=== PATIENT | male | born 1940 | race Two or more races ===

== ENCOUNTER 2018-02-27 11:28 | Inpatient (IN) | payer MEDICARE, MEDICAID ==
[~2018-02-27] VITALS: Ht 172.7 cm; Wt 80.0 kg
[~2018-02-27 11:28] MED LIST: DOCU-131 PO; FLUT1DIS3 IH; GABA300C PO; LACT1CAP4 PO; MULT1CAP19 PO; MVI,10VI2; ONDA4TAB7 PO; OXYC5CAP2 PO; POLY17PO5 PO; TOLT4CAP PO
--- NOTE | 2018-02-27 11:55 | NUR ---
no drainage from suprapubic cath that is open to air having been cut by staff at facility. bladder scanner reveals 67 mm. notified. Labs drawn and pt to XR.
[2018-02-27 12:00] LABS: MEAN CORPUSCULAR HEMOGLOBIN 29.5 pg (27.5-34.5); MEAN CORPUSCULAR VOLUME 89.4 fL (81-97); PLATELET COUNT 305 x10^3/uL (130-400); RED BLOOD COUNT 4.88 x10^6/uL (4.38-5.82); RED CELL DISTRIBUTION WIDTH 14.4 % (9.4-14.8)
[2018-02-27 12:11] LABS: INTERNATIONAL NORMALIZED RATIO 1.25 (0.93-1.1); PROTHROMBIN TIME 13.1 Seconds (9.6-11.5)
[2018-02-27 12:14] LABS: ALBUMIN 2.7 g/dL (3.4-5.0); ANION GAP 9 mmol/L (5-15); CALCIUM 8.9 mg/dL (8.5-10.1); CHLORIDE 104 mmol/L (98-107)
[2018-02-27 12:17] LABS: ALANINE AMINOTRANSFERASE 18 U/L (12-78); ALKALINE PHOSPHATASE 91 U/L (45-117); BILIRUBIN,TOTAL 0.5 mg/dL (0.2-1.0); CREATININE 2.63 mg/dL (0.7-1.3); TOTAL PROTEIN 7.9 g/dL (6.4-8.2)
[2018-02-27] MEDS ORDERED: CEFT1VIA13 IM (12:33)
[2018-02-27] MEDS ORDERED: AMIN30LI PO (12:33)
[2018-02-27] MEDS ORDERED: METF850T10 PO (12:33)
[2018-02-27] MEDS ORDERED: INSU100I13 SQ (12:33)
[2018-02-27] MEDS ORDERED: MAGN400T26 PO (12:33)
[2018-02-27] MEDS ORDERED: MIGHTY SHAKE PO (12:33)
[2018-02-27] MEDS ORDERED: INSU100C5 SQ-INSULIN (12:33)
[2018-02-27] MEDS ORDERED: HYDR-3240 PO (12:33)
--- NOTE | 2018-02-27 12:34 | NUR ---
DR FERRARA TO BS TO D/C SUPRAPUBIC CATH AND REPLACE. UNABLE TO D/C CATH R/T RESISTENCE. PT REPOSITIONED TO BE OFF R HIP. HEALING PRESSURE ULCER. WHITE BARRIER OINTMENT PRESENT. COCCYX/SACRUM EXAMINED. BLANCHABLE REDNESS PRESENT. WHITE BARRIER OINTMENT PRESENT. SKIN IN DRY. NO URINE/FECES PRESENT. POSITIONED WITH PILLOWS TO PROTECT AGAINST SKIN BREAKDOWN.
[2018-02-27 12:56] LABS: BAND#(MANUAL) 2.05 x10^3/uL; BANDS%(MANUAL) 12 % (0-7); LYMPHS% (MANUAL) 7 % (22-44); MD YES; MONOS% (MANUAL) 7 % (2-9); SEG#(MANUAL) 12.65 x10^3/uL (1.8-6.8); SEGS% (MANUAL) 74 % (42-75)
[2018-02-27 12:57] LABS: <PLATELET ESTIMATE> ADEQUATE; <PLT MORPHOLOGY> NORMAL PLT MORPH; <RBC MORPHOLOGY> NORMAL; PMNS WITH VACUOLES 1+
--- NOTE | 2018-02-27 13:18 | NUR ---
PT TO CT
--- NOTE | 2018-02-27 13:46 | NUR ---
DR PALM TO BS. CATH D/C'D. NEW 16F CATH PLACED BY DR PALM. PLACEMENT CONFIRMED WITH IRRIGATION. IRRIGATION FLUID SENT TO LAB FOR CULTURE.
[2018-02-27] MEDS ORDERED: CEFTRIAXONE PMX 1GM/50ML 50 ML IVPB ONE (14:00)
[2018-02-27] MEDS ORDERED: CEFTRIAXONE PMX 1GM/50ML 50 ML ONE (14:18)
[2018-02-27] MEDS ORDERED: ONDANSETRON 2MG/ML, 2ML IVPush PRN (15:00)
[2018-02-27] MEDS: CEFTRIAXONE PMX 2GM/50ML 50 ML IV SCH (15:16)
--- NOTE | 2018-02-27 15:18 | NUR ---
VSS. NAD. No needs at this time.
--- NOTE | 2018-02-27 15:27 | NUR ---
Report to ZACHARY Jeffries.
[2018-02-27] MEDS: INSULIN LISPRO 100 UNITS/ML, PEN SQ-INSULIN SCH ×2 (16:00→22:42)
[2018-02-27 16:58] VITALS: BP 102/65
[2018-02-27 20:10] VITALS: BP 104/65
[2018-02-27] MEDS: INSULIN GLARGINE 100 UNITS/ML, PEN SQ-INSULIN SCH (21:00)
[2018-02-27] MEDS: SODIUM CHLORIDE 0.9% 1,000 ML IV SCH (22:20)
[2018-02-27] MEDS: HEPARIN 5,000 UNITS/ML, 1ML SQ SCH (22:20)
[2018-02-28 03:32] VITALS: BP 103/61
[2018-02-28] MEDS: HEPARIN 5,000 UNITS/ML, 1ML SQ SCH ×3 (05:30→20:38)
[2018-02-28] MEDS: SODIUM CHLORIDE 0.9% 1,000 ML IV SCH ×2 (05:31→13:30)
[2018-02-28 05:42] LABS: MEAN CORPUSCULAR HEMOGLOBIN 29.8 pg (27.5-34.5); MEAN CORPUSCULAR HGB CONC 33.6 g/dL (33.2-36.2); MEAN CORPUSCULAR VOLUME 88.7 fL (81-97); MEAN PLATELET VOLUME 7.1 fL (7.4-10.4); PLATELET COUNT 288 x10^3/uL (130-400); RED BLOOD COUNT 4.14 x10^6/uL (4.38-5.82); RED CELL DISTRIBUTION WIDTH 14.8 % (9.4-14.8)
[2018-02-28 05:50] LABS: ALANINE AMINOTRANSFERASE 16 U/L (12-78); ALBUMIN 2.3 g/dL (3.4-5.0); ANION GAP 11 mmol/L (5-15); CALCIUM 8.3 mg/dL (8.5-10.1); CHLORIDE 109 mmol/L (98-107); CREATININE 2.46 mg/dL (0.7-1.3)
[2018-02-28 05:52] LABS: ALKALINE PHOSPHATASE 79 U/L (45-117); BILIRUBIN,TOTAL 0.3 mg/dL (0.2-1.0); TOTAL PROTEIN 7.2 g/dL (6.4-8.2)
[2018-02-28 06:07] LABS: BASOPHILS # (AUTO) 0.04 x10^3/uL (0-0.1); BASOPHILS % (AUTO) 0 % (0-1); EOSINOPHILS # (AUTO) 0.02 x10^3/uL (0-0.4); EOSINOPHILS % (AUTO) 0 % (1-7); LYMPHOCYTES # (AUTO) 1.16 x10^3/uL (1-3.4); LYMPHOCYTES % (AUTO) 9 % (22-44); MD SCAN; MONOCYTES # (AUTO) 0.75 x10^3/uL (0.2-0.8); MONOCYTES % (AUTO) 6 % (2-9); NEUTROPHILS # (AUTO) 11.52 x10^3/uL (1.8-6.8); NEUTROPHILS % (AUTO) 85 % (42-75)
[2018-02-28 06:30] VITALS: BP 96/57
[2018-02-28] MEDS: INSULIN LISPRO 100 UNITS/ML, PEN SQ-INSULIN SCH ×4 (07:00→20:47)
--- NOTE | 2018-02-28 10:56 | NUR ---
REC: CHOPPED DIET WITH THIN LIQUIDS DUE TO REDUCED DENTITION Addendum: 02/28/18 at 1129 by Jovana DÍAZ Amended: Links added.
[2018-02-28] MEDS: ALBUTEROL SULFATE 2.5 MG/3 ML HHN SCH ×2 (13:30→19:30)
[2018-02-28 14:57] VITALS: BP 109/63
[2018-02-28] MEDS: CEFTRIAXONE PMX 2GM/50ML 50 ML IV SCH (17:04)
[2018-02-28 18:50] VITALS: BP 107/49
[2018-02-28] MEDS: DOCUSATE 100 MG CAPSULE PO SCH (20:38)
[2018-02-28] MEDS: INSULIN GLARGINE 100 UNITS/ML, PEN SQ-INSULIN SCH (20:53)
[2018-02-28] MEDS ORDERED: FLUTICASONE IH SCH (21:00)
[2018-02-28] MEDS: BUDESONIDE 0.5 MG/2 ML INHA HHN SCH (21:00)
[2018-02-28] MEDS ORDERED: SALMETEROL IH SCH (21:00)
[2018-03-01] MEDS: ALBUTEROL SULFATE 2.5 MG/3 ML HHN SCH ×4 (01:30→20:41)
[2018-03-01] MEDS: SODIUM CHLORIDE 0.9% 1,000 ML IV SCH ×4 (01:35→22:15)
[2018-03-01 01:39] VITALS: BP 109/58
[2018-03-01] MEDS: HEPARIN 5,000 UNITS/ML, 1ML SQ SCH ×3 (04:49→20:36)
[2018-03-01 06:18] LABS: MEAN CORPUSCULAR HEMOGLOBIN 29.7 pg (27.5-34.5); MEAN CORPUSCULAR HGB CONC 33.1 g/dL (33.2-36.2); MEAN CORPUSCULAR VOLUME 89.7 fL (81-97); PLATELET COUNT 271 x10^3/uL (130-400); RED BLOOD COUNT 3.65 x10^6/uL (4.38-5.82); RED CELL DISTRIBUTION WIDTH 14.9 % (9.4-14.8)
[2018-03-01 06:32] LABS: ALANINE AMINOTRANSFERASE 16 U/L (12-78); ALBUMIN 1.9 g/dL (3.4-5.0); ANION GAP 9 mmol/L (5-15); CALCIUM 7.3 mg/dL (8.5-10.1); CHLORIDE 104 mmol/L (98-107)
[2018-03-01 06:35] LABS: ALKALINE PHOSPHATASE 73 U/L (45-117); BILIRUBIN,TOTAL 0.4 mg/dL (0.2-1.0); CREATININE 1.43 mg/dL (0.7-1.3); TOTAL PROTEIN 6.2 g/dL (6.4-8.2)
[2018-03-01 06:41] LABS: BASOPHILS # (AUTO) 0.02 x10^3/uL (0-0.1); BASOPHILS % (AUTO) 0 % (0-1); EOSINOPHILS # (AUTO) 0.15 x10^3/uL (0-0.4); EOSINOPHILS % (AUTO) 2 % (1-7); LYMPHOCYTES # (AUTO) 1.02 x10^3/uL (1-3.4); LYMPHOCYTES % (AUTO) 13 % (22-44); MD SCAN; MONOCYTES # (AUTO) 0.53 x10^3/uL (0.2-0.8); MONOCYTES % (AUTO) 7 % (2-9); NEUTROPHILS # (AUTO) 6.39 x10^3/uL (1.8-6.8); NEUTROPHILS % (AUTO) 79 % (42-75)
[2018-03-01] MEDS: INSULIN LISPRO 100 UNITS/ML, PEN SQ-INSULIN SCH ×4 (07:00→20:41)
[2018-03-01 07:45] VITALS: BP 127/67
[2018-03-01] MEDS: BUDESONIDE 0.5 MG/2 ML INHA HHN SCH ×2 (09:00→20:41)
[2018-03-01] MEDS: DOCUSATE 100 MG CAPSULE PO SCH ×2 (09:11→20:36)
[2018-03-01] MEDS: GABAPENTIN 300 MG CAPSULE PO SCH (09:11)
[2018-03-01] MEDS: TOLTERODINE LA 4MG CAP.ER.24H PO SCH (09:11)
[2018-03-01] MEDS: LACTOBACILLUS 1GM/ PACKET PO SCH (09:11)
[2018-03-01] MEDS: MULTIVITAMIN 1 TABLET PO SCH (09:11)
[2018-03-01] MEDS: POLYETHYLENE GLYCOL 17 GM PACKET PO SCH (09:12)
[2018-03-01] MEDS ORDERED: POTASSIUM CHLORIDE 20 MEQ TAB.ER.PRT PO ONE (11:30)
[2018-03-01 14:30] VITALS: BP 111/62
[2018-03-01] MEDS: CEFTRIAXONE PMX 2GM/50ML 50 ML IV SCH (17:09)
[2018-03-01 18:44] LABS: CULTURE INDICATED? YES; MICROSCOPIC INDICATED
[2018-03-01 19:59] VITALS: BP 124/63
[2018-03-01] MEDS: INSULIN GLARGINE 100 UNITS/ML, PEN SQ-INSULIN SCH (20:44)
[2018-03-02 00:37] VITALS: BP 128/62
[2018-03-02] MEDS: HEPARIN 5,000 UNITS/ML, 1ML SQ SCH ×3 (04:53→21:35)
[2018-03-02 05:36] LABS: BASOPHILS # (AUTO) 0.03 x10^3/uL (0-0.1); BASOPHILS % (AUTO) 1 % (0-1); EOSINOPHILS % (AUTO) 2 % (1-7); LYMPHOCYTES % (AUTO) 15 % (22-44); MD NO; MEAN CORPUSCULAR HEMOGLOBIN 29.8 pg (27.5-34.5); MEAN CORPUSCULAR HGB CONC 33.6 g/dL (33.2-36.2); MEAN CORPUSCULAR VOLUME 88.7 fL (81-97); MEAN PLATELET VOLUME 7.3 fL (7.4-10.4); MONOCYTES # (AUTO) 0.47 x10^3/uL (0.2-0.8); MONOCYTES % (AUTO) 8 % (2-9); NEUTROPHILS # (AUTO) 4.32 x10^3/uL (1.8-6.8); NEUTROPHILS % (AUTO) 74 % (42-75); PLATELET COUNT 301 x10^3/uL (130-400); RED BLOOD COUNT 3.87 x10^6/uL (4.38-5.82); RED CELL DISTRIBUTION WIDTH 14.6 % (9.4-14.8)
[2018-03-02 05:43] LABS: ANION GAP 8 mmol/L (5-15); CALCIUM 7.8 mg/dL (8.5-10.1); CHLORIDE 103 mmol/L (98-107)
[2018-03-02 05:45] LABS: CREATININE 0.99 mg/dL (0.7-1.3)
[2018-03-02] MEDS: INSULIN LISPRO 100 UNITS/ML, PEN SQ-INSULIN SCH ×4 (07:00→21:17)
[2018-03-02 08:00] VITALS: BP 125/64
[2018-03-02] MEDS: ALBUTEROL SULFATE 2.5 MG/3 ML HHN SCH ×2 (09:00→21:00)
[2018-03-02] MEDS: BUDESONIDE 0.5 MG/2 ML INHA HHN SCH ×2 (09:00→21:00)
[2018-03-02] MEDS: TOLTERODINE LA 4MG CAP.ER.24H PO SCH (10:04)
[2018-03-02] MEDS: DOCUSATE 100 MG CAPSULE PO SCH ×2 (10:04→21:34)
[2018-03-02] MEDS: MULTIVITAMIN 1 TABLET PO SCH (10:04)
[2018-03-02] MEDS: POLYETHYLENE GLYCOL 17 GM PACKET PO SCH (10:04)
[2018-03-02] MEDS: GABAPENTIN 300 MG CAPSULE PO SCH (10:04)
[2018-03-02] MEDS: LACTOBACILLUS 1GM/ PACKET PO SCH (10:04)
[2018-03-02 14:00] VITALS: BP 141/68
[2018-03-02] MEDS: SODIUM CHLORIDE 0.9% 1,000 ML IV SCH (14:59)
[2018-03-02] MEDS: ACETAMINOPHEN 325 MG TABLET PO PRN (17:17)
[2018-03-02] MEDS: CEFTRIAXONE PMX 2GM/50ML 50 ML IV SCH (17:17)
[2018-03-02 19:33] VITALS: BP 144/69
[2018-03-02] MEDS ORDERED: LIDODERM 5% PATCH TD SCH (21:00)
[2018-03-02] MEDS: INSULIN GLARGINE 100 UNITS/ML, PEN SQ-INSULIN SCH (21:30)
[2018-03-02] MEDS: OXYBUTYNIN CHLORIDE 5 MG TABLET PO SCH (21:34)
[2018-03-03 01:06] VITALS: BP 151/67
[2018-03-03] MEDS: SODIUM CHLORIDE 0.9% 1,000 ML IV SCH (04:27)
[2018-03-03] MEDS: HEPARIN 5,000 UNITS/ML, 1ML SQ SCH ×2 (04:29→13:18)
[2018-03-03 05:29] LABS: CHLORIDE 104 mmol/L (98-107)
[2018-03-03 05:31] LABS: MEAN CORPUSCULAR HEMOGLOBIN 29.4 pg (27.5-34.5); MEAN CORPUSCULAR HGB CONC 33.6 g/dL (33.2-36.2); MEAN CORPUSCULAR VOLUME 87.3 fL (81-97); MEAN PLATELET VOLUME 7.2 fL (7.4-10.4); PLATELET COUNT 335 x10^3/uL (130-400); RED CELL DISTRIBUTION WIDTH 14.7 % (9.4-14.8)
[2018-03-03 05:38] LABS: ALANINE AMINOTRANSFERASE 18 U/L (12-78); ALBUMIN 2.2 g/dL (3.4-5.0); ALKALINE PHOSPHATASE 80 U/L (45-117); ANION GAP 7 mmol/L (5-15); BILIRUBIN,TOTAL 0.4 mg/dL (0.2-1.0); CALCIUM 8.3 mg/dL (8.5-10.1); CREATININE 0.96 mg/dL (0.7-1.3); TOTAL PROTEIN 6.8 g/dL (6.4-8.2)
[2018-03-03 05:59] LABS: BASOPHILS # (AUTO) 0.03 x10^3/uL (0-0.1); BASOPHILS % (AUTO) 0 % (0-1); EOSINOPHILS % (AUTO) 1 % (1-7); LYMPHOCYTES # (AUTO) 1.12 x10^3/uL (1-3.4); LYMPHOCYTES % (AUTO) 15 % (22-44); MD SCAN; MONOCYTES # (AUTO) 0.55 x10^3/uL (0.2-0.8); MONOCYTES % (AUTO) 7 % (2-9); NEUTROPHILS # (AUTO) 5.69 x10^3/uL (1.8-6.8); NEUTROPHILS % (AUTO) 76 % (42-75)
[2018-03-03] MEDS: BUDESONIDE 0.5 MG/2 ML INHA HHN SCH (07:15)
[2018-03-03] MEDS: ALBUTEROL SULFATE 2.5 MG/3 ML HHN SCH (07:15)
[2018-03-03 07:49] VITALS: BP 129/69
[2018-03-03] MEDS ORDERED: MAGNESIUM SULFATE PMX 2GM/50ML 50 ML IV ONE (08:30)
[2018-03-03] MEDS: DOCUSATE 100 MG CAPSULE PO SCH (09:53)
[2018-03-03] MEDS: POLYETHYLENE GLYCOL 17 GM PACKET PO SCH (09:53)
[2018-03-03] MEDS: LACTOBACILLUS 1GM/ PACKET PO SCH (09:53)
[2018-03-03] MEDS: INSULIN LISPRO 100 UNITS/ML, PEN SQ-INSULIN SCH ×3 (09:53→17:04)
[2018-03-03] MEDS: MULTIVITAMIN 1 TABLET PO SCH (09:53)
[2018-03-03] MEDS: TOLTERODINE LA 4MG CAP.ER.24H PO SCH (09:53)
[2018-03-03] MEDS: GABAPENTIN 300 MG CAPSULE PO SCH (09:54)
[2018-03-03] MEDS: OXYBUTYNIN CHLORIDE 5 MG TABLET PO SCH (09:54)
[2018-03-03 13:10] VITALS: BP 161/78
[2018-03-03] MEDS ORDERED: OXYB5TAB7 PO (13:12)
[2018-03-03] MEDS ORDERED: BUDE0.5A HHN (13:12)
[2018-03-03] MEDS ORDERED: CEFT1FRO2 IV (13:12)
[2018-03-03] MEDS ORDERED: AMPI3VIA IV (15:26)
[2018-03-03] MEDS: ACETAMINOPHEN 325 MG TABLET PO PRN (15:26)
[2018-03-03] MEDS: CEFTRIAXONE PMX 2GM/50ML 50 ML IV SCH (17:18)
[2018-03-03] MEDS ORDERED: ALBUTEROL SULFATE 2.5 MG/3 ML ONE (18:29)
== END 2018-03-03 18:26 | DRG 871 ==
LOC: ED 12:08 → EDIP 14:34 → 3NE 15:51
PROVIDERS: ADMIT Internal Medicine; ATTEND Internal Medicine
PROC: 0T2BX0Z Change Drainage Device in Bladder, External Approach (ICD-10-PCS; principal; 2018-02-27)
DX: A41.9 Sepsis, unspecified organism (principal); N17.0 Acute kidney failure with tubular necrosis; G93.41 Metabolic encephalopathy; G82.20 Paraplegia, unspecified; J98.11 Atelectasis; N10 Acute pyelonephritis; L89.219 Pressure ulcer of right hip, unspecified stage; R53.81 Other malaise; E11.65 Type 2 diabetes mellitus with hyperglycemia; E87.6 Hypokalemia; E88.09 Other disorders of plasma-protein metabolism, not elsewhere classified; K21.9 Gastro-esophageal reflux disease without esophagitis; N31.9 Neuromuscular dysfunction of bladder, unspecified; N40.0 Benign prostatic hyperplasia without lower urinary tract symptoms; Z79.4 Long term (current) use of insulin; Z86.73 Personal history of transient ischemic attack (TIA), and cerebral infarction without residual deficits; Z93.59 Other cystostomy status; T83.098A Other mechanical complication of other urinary catheter, initial encounter
CPT/HCPCS: 36415; 51702; 70450; 71045; 74018; 74176; 80048; 80053; 81001; 82962; 83605; 83690; 83735; 84100; 84145; 85025; 85610; 87040; 87077; 87086; 87186; 93005; 94640; 99285; G0378; J0696; J1644; J7613; J7626; 92523-GN; G0515-GN; J1815; J3475; J7030

== ENCOUNTER 2019-12-17 17:01 | Inpatient (IN) | payer MEDICARE, MEDICAID ==
[~2019-12-17] VITALS: Ht 170.2 cm; Wt 75.6 kg
[~2019-12-17 17:01] MED LIST changes: +AMIN30LI PO; +AMPI3VIA IV; +BUDE0.5A HHN; +CEFT1FRO2 IV; +CEFT1VIA13 IM; +HYDR-3240 PO; +INSU100C5 SQ-INSULIN; +INSU100I13 SQ; +MAGN400T26 PO; +MERO1VIA24 IVPB; +METF850T10 PO; +MIGHTY SHAKE PO; +OXYB5TAB10 PO
[2019-12-17] MEDS ORDERED: AZITHROMYCIN 500 MG in SODIUM CHLORIDE 0.9% 250 ML IV ONE (17:30)
[2019-12-17] MEDS ORDERED: SODIUM CHLORIDE 0.9% 1,000ML IVBOLUS ONE (17:30)
[2019-12-17] MEDS ORDERED: CEFTRIAXONE PMX 1GM/50ML 50 ML IVPB ONE (17:30)
--- NOTE | 2019-12-17 17:42 | NUR ---
BLOOD CULTURES BEING DRAWN NOW
[2019-12-17 18:05] LABS: BASOPHILS % (AUTO) 0 % (0-1); EOSINOPHILS % (AUTO) 0 % (1-7); LYMPHOCYTES % (AUTO) 20 % (22-44); MEAN CORPUSCULAR HEMOGLOBIN 27.7 pg (27.5-34.5); MEAN CORPUSCULAR HGB CONC 33.5 g/dL (33.2-36.2); MEAN PLATELET VOLUME 6.4 fL (7.4-10.4); MONOCYTES % (AUTO) 7 % (2-9); NEUTROPHILS % (AUTO) 73 % (42-75); PLATELET COUNT 256 x10^3/uL (130-400); RED BLOOD COUNT 4.22 x10^6/uL (4.38-5.82); RED CELL DISTRIBUTION WIDTH 15.5 % (9.4-14.8)
[2019-12-17] MEDS ORDERED: CEFTRIAXONE PMX 1GM/50ML 50 ML ONE (18:08)
[2019-12-17 18:10] LABS: ALANINE AMINOTRANSFERASE 13 U/L (12-78); ALBUMIN 2.3 g/dL (3.4-5.0); ANION GAP 7 mmol/L (5-15); CALCIUM 7.5 mg/dL (8.5-10.1); CHLORIDE 99 mmol/L (98-107); CREATININE 0.81 mg/dL (0.7-1.3); MD NO
[2019-12-17 18:14] LABS: ALKALINE PHOSPHATASE 93 U/L (45-117); BILIRUBIN,TOTAL 0.3 mg/dL (0.2-1.0); TOTAL PROTEIN 6.9 g/dL (6.4-8.2); TROPONIN I < 0.015 ng/mL (0.000-0.045)
--- NOTE | 2019-12-17 18:37 | NUR ---
PT PLACED ON WAFFLE MATTRESS (42 PUMPS). COMPLETE LINEN CHANGE. PILLOWS USED FOR POSITIONING
[2019-12-17 18:57] LABS: MICROSCOPIC INDICATED
--- NOTE | 2019-12-17 18:57 | NUR ---
BEDSIDE REPORT FROM ZACHARY HERNANDEZ. PT SITTING IN BED, VSS. ASKED FOR TV REMOTE.
[2019-12-17] MEDS ORDERED: SODIUM CHLORIDE 0.9%, 500ML IVBOLUS ONE (19:00)
--- NOTE | 2019-12-17 20:44 | NUR ---
PER DAUGHTER WHO IS NEXT OF KIN, PT WEARS 2L O2. DAUGHTER STATES HE DOES NOT HAVE DEMENTIA, "HE ONLY GETS CONFUSED WHEN HE HAS A HIGH FEVER OR A HIGH SUGAR." DAUGHTER ALSO STATES PT IS AT [employer] FOR [employer]. PT CURRENTLY RESTING IN BED,
--- NOTE | 2019-12-17 21:13 | NUR ---
REPORT GIVEN MIGUEL STRINGER RN.
[2019-12-17 22:00] VITALS: BP 144/62
[2019-12-17] MEDS ORDERED: ENALAPRILAT 1.25 MG/ML, 2ML IVPush PRN (22:00)
[2019-12-17] MEDS ORDERED: MELATONIN 5 MG TABLET PO PRN (22:00)
[2019-12-17] MEDS ORDERED: ACETAMINOPHEN 325 MG TABLET PO PRN (22:00)
[2019-12-17] MEDS ORDERED: CEFTRIAXONE PMX 1GM/50ML 50 ML IV ONE (22:00)
[2019-12-17] MEDS ORDERED: LIDODERM 5% PATCH TD PRN (22:00)
[2019-12-17] MEDS ORDERED: DOCUSATE 100 MG CAPSULE PO PRN (22:00)
[2019-12-17] MEDS ORDERED: ONDANSETRON ODT 4 MG PO PRN (22:00)
[2019-12-17] MEDS ORDERED: GABAPENTIN 300 MG CAPSULE PO PRN (22:00)
[2019-12-18] MEDS: ENOXAPARIN 40 MG/0.4 ML SQ SCH ×2 (00:06→23:35)
[2019-12-18 01:00] VITALS: BP 133/78
[2019-12-18] MEDS ORDERED: MAGN400O7 PO (02:22)
[2019-12-18] MEDS ORDERED: HYDR12.517 PO (02:22)
[2019-12-18] MEDS ORDERED: ENOX40SY4 SQ (02:22)
[2019-12-18] MEDS ORDERED: INSU100I28 SC ×2 (02:22)
[2019-12-18] MEDS ORDERED: [UNRECOGNIZED DRUG - OTHER] PO (02:22)
[2019-12-18] MEDS ORDERED: DIVA125T2 PO (02:22)
[2019-12-18] MEDS ORDERED: ACET1000 BLADIN (02:22)
[2019-12-18] MEDS ORDERED: CHOL10003 PO (02:22)
[2019-12-18] MEDS ORDERED: MIRT15TA3 PO (02:22)
[2019-12-18] MEDS ORDERED: [UNRECOGNIZED DRUG - CODE] PO (02:22)
[2019-12-18] MEDS ORDERED: ACET325T14 PO (02:22)
[2019-12-18] MEDS ORDERED: ASCO500T8 PO (02:22)
[2019-12-18] MEDS ORDERED: Quercetin PO (02:22)
[2019-12-18] MEDS ORDERED: ZINC50TA40 PO (02:22)
[2019-12-18] MEDS ORDERED: FAMO-79 PO (02:22)
[2019-12-18] MEDS ORDERED: CEPH-368 PO (02:22)
[2019-12-18] MEDS ORDERED: NORMAL SALINE IV (02:47)
[2019-12-18] MEDS ORDERED: normal saline IV (02:47)
[2019-12-18] MEDS ORDERED: NORMAL SALINE IVBOLUS (02:47)
[2019-12-18] MEDS ORDERED: MAGNESIUM HYDROXIDE 8%, 30ML UDC PO PRN (03:30)
[2019-12-18] MEDS: GUAIFENESIN 100 MG/5 ML, 10ML UDC PO SCH ×4 (05:25→23:34)
[2019-12-18 05:38] LABS: ANION GAP 8 mmol/L (5-15); CALCIUM 7.7 mg/dL (8.5-10.1); CHLORIDE 103 mmol/L (98-107)
[2019-12-18 05:40] LABS: CREATININE 0.65 mg/dL (0.7-1.3)
[2019-12-18 06:25] LABS: BASOPHILS % (AUTO) 0 % (0-1); EOSINOPHILS % (AUTO) 0 % (1-7); LYMPHOCYTES % (AUTO) 26 % (22-44); MEAN CORPUSCULAR HEMOGLOBIN 27.3 pg (27.5-34.5); MEAN CORPUSCULAR HGB CONC 32.7 g/dL (33.2-36.2); MEAN PLATELET VOLUME 6.8 fL (7.4-10.4); MONOCYTES % (AUTO) 7 % (2-9); NEUTROPHILS % (AUTO) 67 % (42-75); PLATELET COUNT 246 x10^3/uL (130-400); RED BLOOD COUNT 4.22 x10^6/uL (4.38-5.82); RED CELL DISTRIBUTION WIDTH 15.2 % (9.4-14.8)
[2019-12-18 06:32] LABS: MD NO
[2019-12-18 06:33] VITALS: BP 131/69
[2019-12-18] MEDS ORDERED: POTASSIUM CHLORIDE 20 MEQ TAB.ER.PRT PO ONE (08:00)
[2019-12-18] MEDS: INSULIN REGULAR 100 UNITS/ML, 3ML VIAL SQ-INSULIN SCH ×4 (08:00→20:43)
[2019-12-18] MEDS ORDERED: SALMETEROL INH SCH (09:00)
[2019-12-18] MEDS ORDERED: FLUTICASONE INH SCH (09:00)
[2019-12-18] MEDS: OXYBUTYNIN CHLORIDE 5 MG TABLET PO SCH ×2 (09:40→20:42)
[2019-12-18] MEDS: DOCUSATE 100 MG CAPSULE PO SCH ×2 (09:41→20:42)
[2019-12-18] MEDS: ASCORBIC ACID 500 MG TABLET PO SCH ×2 (09:41→20:42)
[2019-12-18] MEDS: DIVALPROEX 125 MG TABLET.DR PO SCH ×2 (09:41→20:42)
[2019-12-18] MEDS: HYDROCHLOROTHIAZIDE 12.5 MG CAPSULE PO SCH (09:41)
[2019-12-18] MEDS: CHOLECALCIFEROL 1,000 UNIT TABLET PO SCH (09:42)
[2019-12-18] MEDS: POLYETHYLENE GLYCOL 17 GM PACKET PO SCH (09:42)
[2019-12-18] MEDS: metFORMIN 850 MG TABLET PO SCH ×2 (09:42→17:13)
[2019-12-18] MEDS: MULTIVITAMIN 1 TABLET PO SCH (09:42)
[2019-12-18 13:27] VITALS: BP 122/68
[2019-12-18] MEDS: FLUTICASONE/VILANTEROL 200-25MCG/INH INH SCH (14:20)
[2019-12-18] MEDS: CEFTRIAXONE PMX 2GM/50ML 50 ML IVPB SCH (17:13)
[2019-12-18 19:30] VITALS: BP 128/83
[2019-12-18] MEDS: ZINC SULFATE 220 MG CAPSULE PO SCH (20:42)
[2019-12-18] MEDS: MIRTAZAPINE 15 MG TAB.RAPDIS PO SCH (20:42)
[2019-12-18] MEDS: GABAPENTIN 300 MG CAPSULE PO SCH (20:43)
[2019-12-18] MEDS: AZITHROMYCIN 500 MG in SODIUM CHLORIDE 0.9% 250 ML IV SCH (23:25)
[2019-12-19 01:39] VITALS: BP 106/50
[2019-12-19] MEDS: GUAIFENESIN 100 MG/5 ML, 10ML UDC PO SCH ×4 (05:44→17:50)
[2019-12-19 07:42] VITALS: BP 103/62
[2019-12-19] MEDS: INSULIN REGULAR 100 UNITS/ML, 3ML VIAL SQ-INSULIN SCH ×4 (07:45→20:31)
[2019-12-19] MEDS: metFORMIN 850 MG TABLET PO SCH ×3 (09:09→17:30)
[2019-12-19] MEDS: CHOLECALCIFEROL 1,000 UNIT TABLET PO SCH (09:10)
[2019-12-19] MEDS: OXYBUTYNIN CHLORIDE 5 MG TABLET PO SCH ×2 (09:10→20:32)
[2019-12-19] MEDS: ASCORBIC ACID 500 MG TABLET PO SCH ×2 (09:10→20:32)
[2019-12-19] MEDS: DEXAMETHASONE 4 MG/ML, 1ML IVPush SCH (09:10)
[2019-12-19] MEDS: DOCUSATE 100 MG CAPSULE PO SCH ×2 (09:10→20:32)
[2019-12-19] MEDS: MULTIVITAMIN 1 TABLET PO SCH (09:10)
[2019-12-19] MEDS: POLYETHYLENE GLYCOL 17 GM PACKET PO SCH (09:11)
[2019-12-19] MEDS: HYDROCHLOROTHIAZIDE 12.5 MG CAPSULE PO SCH (09:11)
[2019-12-19] MEDS: DIVALPROEX 125 MG TABLET.DR PO SCH ×2 (09:11→17:31)
[2019-12-19] MEDS: FLUTICASONE/VILANTEROL 200-25MCG/INH INH SCH (09:11)
[2019-12-19 13:22] VITALS: BP 116/77
[2019-12-19] MEDS: MIRTAZAPINE 15 MG TAB.RAPDIS PO SCH (17:29)
[2019-12-19] MEDS: CEFTRIAXONE PMX 2GM/50ML 50 ML IVPB SCH (17:30)
[2019-12-19] MEDS: SODIUM CHLORIDE 0.9% 1,000 ML IV SCH (17:30)
[2019-12-19 17:48] LABS: ANION GAP 10 mmol/L (5-15); CHLORIDE 99 mmol/L (98-107); CREATININE 0.81 mg/dL (0.7-1.3)
[2019-12-19 20:00] VITALS: BP 115/57
[2019-12-19] MEDS: ZINC SULFATE 220 MG CAPSULE PO SCH (20:32)
[2019-12-19] MEDS: GABAPENTIN 300 MG CAPSULE PO SCH (20:32)
[2019-12-19] MEDS: AZITHROMYCIN 500 MG in SODIUM CHLORIDE 0.9% 250 ML IV SCH (20:33)
[2019-12-20] MEDS: ENOXAPARIN 40 MG/0.4 ML SQ SCH
[2019-12-20] MEDS: GUAIFENESIN 100 MG/5 ML, 10ML UDC PO SCH ×4 (00:40→18:11)
[2019-12-20 01:19] VITALS: BP 98/57
[2019-12-20] MEDS: INSULIN REGULAR 100 UNITS/ML, 3ML VIAL SQ-INSULIN SCH ×4 (07:10→21:00)
[2019-12-20 07:42] VITALS: BP 123/66
[2019-12-20] MEDS: FLUTICASONE/VILANTEROL 200-25MCG/INH INH SCH (09:41)
[2019-12-20] MEDS: ASCORBIC ACID 500 MG TABLET PO SCH ×2 (10:07→21:49)
[2019-12-20] MEDS: metFORMIN 850 MG TABLET PO SCH ×2 (10:07→18:11)
[2019-12-20] MEDS: DIVALPROEX 125 MG TABLET.DR PO SCH ×2 (10:08→21:49)
[2019-12-20] MEDS: HYDROCHLOROTHIAZIDE 12.5 MG CAPSULE PO SCH (10:08)
[2019-12-20] MEDS: CHOLECALCIFEROL 1,000 UNIT TABLET PO SCH (10:08)
[2019-12-20] MEDS: DOCUSATE 100 MG CAPSULE PO SCH ×2 (10:08→21:49)
[2019-12-20] MEDS: OXYBUTYNIN CHLORIDE 5 MG TABLET PO SCH ×2 (10:09→21:49)
[2019-12-20] MEDS: MULTIVITAMIN 1 TABLET PO SCH (10:10)
[2019-12-20] MEDS: DEXAMETHASONE 4 MG/ML, 1ML IVPush SCH (10:11)
[2019-12-20] MEDS: POLYETHYLENE GLYCOL 17 GM PACKET PO SCH (10:16)
[2019-12-20] MEDS: SODIUM CHLORIDE 0.9% 1,000 ML IV SCH (10:27)
[2019-12-20 15:32] VITALS: BP 150/71
[2019-12-20] MEDS: CEFTRIAXONE PMX 2GM/50ML 50 ML IVPB SCH (18:11)
[2019-12-20 19:21] VITALS: BP 137/68
[2019-12-20] MEDS: ZINC SULFATE 220 MG CAPSULE PO SCH (21:49)
[2019-12-20] MEDS: GABAPENTIN 300 MG CAPSULE PO SCH (21:49)
[2019-12-20] MEDS: MIRTAZAPINE 15 MG TAB.RAPDIS PO SCH (21:50)
[2019-12-20] MEDS: AZITHROMYCIN 500 MG in SODIUM CHLORIDE 0.9% 250 ML IV SCH (22:22)
[2019-12-21] MEDS: ENOXAPARIN 40 MG/0.4 ML SQ SCH
[2019-12-21] MEDS: GUAIFENESIN 100 MG/5 ML, 10ML UDC PO SCH ×3 (00:53→12:26)
[2019-12-21 01:00] VITALS: BP 128/56
[2019-12-21 06:46] VITALS: BP 121/64
[2019-12-21] MEDS: CHOLECALCIFEROL 1,000 UNIT TABLET PO SCH (08:20)
[2019-12-21] MEDS: INSULIN REGULAR 100 UNITS/ML, 3ML VIAL SQ-INSULIN SCH ×3 (08:20→16:00)
[2019-12-21] MEDS: MULTIVITAMIN 1 TABLET PO SCH (08:21)
[2019-12-21] MEDS: ASCORBIC ACID 500 MG TABLET PO SCH (08:21)
[2019-12-21] MEDS: HYDROCHLOROTHIAZIDE 12.5 MG CAPSULE PO SCH (08:21)
[2019-12-21] MEDS: DIVALPROEX 125 MG TABLET.DR PO SCH (08:21)
[2019-12-21] MEDS: OXYBUTYNIN CHLORIDE 5 MG TABLET PO SCH (08:22)
[2019-12-21] MEDS: metFORMIN 850 MG TABLET PO SCH (08:22)
[2019-12-21] MEDS: DEXAMETHASONE 4 MG/ML, 1ML IVPush SCH (08:22)
[2019-12-21] MEDS: DOCUSATE 100 MG CAPSULE PO SCH (08:23)
[2019-12-21] MEDS: FLUTICASONE/VILANTEROL 200-25MCG/INH INH SCH (08:23)
[2019-12-21] MEDS: POLYETHYLENE GLYCOL 17 GM PACKET PO SCH (08:23)
[2019-12-21] MEDS ORDERED: DEXA6TAB6 PO (12:07)
[2019-12-21] MEDS ORDERED: ERTA1VIA IV (12:07)
[2019-12-21] MEDS ORDERED: AZIT500T PO (12:07)
[2019-12-21] MEDS ORDERED: ERTAPENEM 1 GM in SODIUM CHLORIDE 0.9% 50 ML IV SCH (13:00)
[2019-12-21 13:34] VITALS: BP 155/70
== END 2019-12-21 17:50 | DRG 177 ==
LOC: ED 18:26 → UNDOADMIN 18:37 → EDIP 18:37 → 4EST 21:50
PROVIDERS: ADMIT Internal Medicine; ATTEND Internal Medicine
DX: U07.1 COVID-19 (principal); G93.41 Metabolic encephalopathy; E43 Unspecified severe protein-calorie malnutrition; J12.89 Other viral pneumonia; J96.21 Acute and chronic respiratory failure with hypoxia; F33.9 Major depressive disorder, recurrent, unspecified; G82.20 Paraplegia, unspecified; J44.0 Chronic obstructive pulmonary disease with (acute) lower respiratory infection; B96.4 Proteus (mirabilis) (morganii) as the cause of diseases classified elsewhere; D64.9 Anemia, unspecified; E11.40 Type 2 diabetes mellitus with diabetic neuropathy, unspecified; E78.5 Hyperlipidemia, unspecified; L89.309 Pressure ulcer of unspecified buttock, unspecified stage; L89.619 Pressure ulcer of right heel, unspecified stage; L89.629 Pressure ulcer of left heel, unspecified stage; N30.90 Cystitis, unspecified without hematuria; N31.9 Neuromuscular dysfunction of bladder, unspecified; G89.29 Other chronic pain; K21.9 Gastro-esophageal reflux disease without esophagitis; L89.90 Pressure ulcer of unspecified site, unspecified stage; R79.82 Elevated C-reactive protein (CRP); N40.0 Benign prostatic hyperplasia without lower urinary tract symptoms; Z66 Do not resuscitate; Z79.4 Long term (current) use of insulin; Z86.19 Personal history of other infectious and parasitic diseases; Z86.718 Personal history of other venous thrombosis and embolism; Z87.891 Personal history of nicotine dependence; Z93.59 Other cystostomy status; Z87.440 Personal history of urinary (tract) infections; Z68.26 Body mass index [BMI] 26.0-26.9, adult
CPT/HCPCS: 36415; 71045; 80048; 80053; 81001; 82728; 82962; 83605; 83615; 84145; 84484; 85025; 85379; 86140; 87040; 87077; 87086; 87186; 93005; 94640; 96365; 96375; G0378; J0456; J0696; J1100; J1335; J1650; J1815; J7030; J7040; J7050